=== PATIENT | female | born 1935 | race Caucasian/White ===

== ENCOUNTER → 2019-03-07 | Outpatient (CLI) | payer MEDICARE, OTHER | LOC: COL.RAD 02-28 10:30 | DX: M50.322 Other cervical disc degeneration at C5-C6 level (principal); M46.92 Unspecified inflammatory spondylopathy, cervical region ==

== ENCOUNTER 2021-05-04 16:55 | Emergency (ER) | payer MEDICARE, OTHER ==
[~2021-05-04] VITALS: Ht 160 cm; Wt 63.6 kg
[2021-05-04 17:09] VITALS: TEMP 98.1
[2021-05-04] MEDS ORDERED: NORCO 325 MG-51 TAB PO (17:24)
[2021-05-04 18:03] VITALS: BP 126/71; PULSE 78
[2021-07-04] MEDS ORDERED: ZYRTEC 10MG10 MG PO (11:58)
[2021-07-04] MEDS ORDERED: MIRALAX PA17 GM/Dose PO (11:58)
[2021-07-04] MEDS ORDERED: NORCO 325 MG-51 TAB PO (15:15)
[2021-07-04] MEDS ORDERED: ZOFRAN ODT4 MG PO (15:16)
== END 2021-05-04 18:05 | disposition home or self-care (01) ==
LOC: COL.ER 16:55
DX: S42.294A Other nondisplaced fracture of upper end of right humerus, initial encounter for closed fracture (principal); W01.0XXA Fall on same level from slipping, tripping and stumbling without subsequent striking against object, initial encounter; Y92.480 Sidewalk as the place of occurrence of the external cause

== ENCOUNTER 2021-05-11 13:22 | Emergency (ER) | payer MEDICARE, OTHER ==
[~2021-05-11] VITALS: Ht 157.5 cm; Wt 72.7 kg
[~2021-05-11 13:22] MED LIST: NORCO 325 MG-51 TAB PO
[2021-05-11 13:35] VITALS: TEMP 98.2
[2021-05-11 16:47] VITALS: BP 137/65; PULSE 66
[2021-07-04] MEDS ORDERED: MIRALAX PA17 GM/Dose PO (11:58)
[2021-07-04] MEDS ORDERED: ZYRTEC 10MG10 MG PO (11:58)
[2021-07-04] MEDS ORDERED: NORCO 325 MG-51 TAB PO (15:15)
[2021-07-04] MEDS ORDERED: ZOFRAN ODT4 MG PO (15:16)
== END 2021-05-11 16:51 | disposition home or self-care (01) ==
LOC: COL.ER 13:22
DX: K59.03 Drug induced constipation (principal); T40.2X5A Adverse effect of other opioids, initial encounter

== ENCOUNTER 2021-06-26 10:56 | Day surgery (SDC) | payer MEDICARE, OTHER ==
[~2021-06-26] VITALS: Ht 157.5 cm; Wt 67.0 kg
[2021-06-26] MEDS ORDERED: MASON NATURAL2000 IU PO (11:54)
[2021-06-26] MEDS ORDERED: ASPIRIN 81M81 MG/TA2 PO (11:55)
[2021-06-26] MEDS ORDERED: PRILOSEC 20MG20 MG PO (11:56)
[2021-06-26] MEDS ORDERED: HCTZ12.5TAB PO (11:56)
[2021-06-26] MEDS ORDERED: GAS AID MAXIMU125 MG PO (11:58)
[2021-06-26] MEDS ORDERED: SYNTHROID0.1 MG/TAB PO (11:58)
[2021-06-26 12:25] VITALS: BP 134/72; PULSE 80; TEMP 98.1
[2021-06-26 13:45] VITALS: BP 138/69; PULSE 72; TEMP 97.7
--- NOTE | 2021-06-26 13:45 | NUR ---
PATIENT BROUGHT BACK TO ENDO ROOM 6 VIA CART. PLACED ON MONITORS, VITAL SIGNS STABLE. DAUGHTER AT BEDSIDE SPEAKING WITH DR. FLOYD. PATIENT REMAINS DROWSY BUT REQUESTS CRANBERRY JUICE. IV INFUSING INTO LEFT HAND. RIGHT ARM REMAINS IN SLING. ALL SAFETY MAINTAINED, WILL CONTINUE TO MONITOR.
[2021-06-26 14:00] VITALS: BP 149/72; PULSE 73
--- NOTE | 2021-06-26 14:45 | NUR ---
LAB AT BEDSIDE. DRAWN OF IV FROM LEFT WRIST.
--- NOTE | 2021-06-26 15:00 | NUR ---
DISCHARGE INSTRUCTIONS REVIEWED WITH PATIENT AND FAMILY MEMBER. APPOINTMENT FOR CT MADE FOR WEDNESDAY. ALL QUESTIONS ANSWERED. IV REMOVED, TOLERATED WITHOUT DIFFICULTY. PATIENT TO GET DRESSED AT THIS TIME.
[2021-06-26 15:04] LABS: BASO # 0.1 (0.0-0.2); BASO % 0.8 % (0.0-2.0); EOS # 0.1 (0.0-0.7); EOS % 1.6 % (0-4.0); GRAN % 62.5 % (42.2-75.2); HEMATOCRIT 37.7 % (37.0-47.0); HEMOGLOBIN 12.5 g/dl (12.5-16.0); LYMPH # 1.5 (1.2-3.4); LYMPH % 24.4 % (20.0-51.0); MEAN CELL VOLUME 89 fl (80.0-100.0); MEAN CORPUSCULAR HEMOGLOBIN 30 pg (27.0-31.0); MEAN CORPUSCULAR HGB CONC 33 g/dl (33.0-37.0); MEAN PLATELET VOLUME 9.9 fl (7.4-10.4); MONO # 0.7 (0.1-0.6); MONO % 10.4 % (1.7-9.3); PLATELET COUNT 278 K/mm3 (130-400); RED BLOOD COUNT 4.24 M/mm3 (4.10-5.30); REDCELL DISTRIBUTION WIDTH-CV 13.8 % (11.5-14.5)
--- NOTE | 2021-06-26 15:10 | NUR ---
PATIENT BROUGHT DOWN TO LOBBY VIA WHEEL CHAIR. TO BE DRIVEN HOME BY DAUGHTER. ALL BELONGINGS IN HAND.
[2021-06-26 15:13] LABS: BILIRUBIN,TOTAL 0.4 mg/dL (0.0-1.0); CALCIUM 9.2 mg/dL (8.4-10.2); CREATININE, serum 0.45 (0.52-1.25); POTASSIUM 3.5 mmol/L (3.4-5.0); TOTAL PROTEIN 7.4 gm/dL (6.4-8.2)
[2021-07-04] MEDS ORDERED: ZYRTEC 10MG10 MG PO (11:58)
[2021-07-04] MEDS ORDERED: MIRALAX PA17 GM/Dose PO (11:58)
[2021-07-04] MEDS ORDERED: NORCO 325 MG-51 TAB PO (15:15)
[2021-07-04] MEDS ORDERED: ZOFRAN ODT4 MG PO (15:16)
== END 2021-06-26 15:10 | disposition home or self-care (01) ==
LOC: SDCO 10:56
PROVIDERS: Surgery
DX: C16.0 Malignant neoplasm of cardia (principal); I10 Essential (primary) hypertension; K21.9 Gastro-esophageal reflux disease without esophagitis; M19.90 Unspecified osteoarthritis, unspecified site; J30.9 Allergic rhinitis, unspecified; R73.03 Prediabetes; Z90.89 Acquired absence of other organs; Z79.890 Hormone replacement therapy; Z85.828 Personal history of other malignant neoplasm of skin; Z79.82 Long term (current) use of aspirin; Z79.899 Other long term (current) drug therapy; Z80.1 Family history of malignant neoplasm of trachea, bronchus and lung; Z80.0 Family history of malignant neoplasm of digestive organs; Z83.3 Family history of diabetes mellitus
CPT/HCPCS: J2704; J7120